=== PATIENT | male | born 1960 | race Caucasian/White ===

== ENCOUNTER → 2018-02-07 12:55 | Outpatient (CLI) | payer OTHER ==
--- NOTE | ~2018-02-07 | EC ---
PATIENT:NIYAH JAEGER DATE OF SERVICE: 02/07/18 SEX: M MEDICAL RECORD: [id number] DATE OF : 60 [facility] AGE OF PATIENT: 57 ADMISSION DATE: 02/07/18 REFERRING PHYSICIAN: INTERPRETING PHYSICIAN: MICHELLE IRIZARRY MD ECHOCARDIOGRAM REPORT ECHO CHARGES 4 ECHO COMPLETE Date: 02/07 CLINICAL DIAGNOSIS: CHEST PAIN ECHOCARDIOGRAPHIC MEASUREMENTS (adult normal given) AC root (d.<3.7cm) 3.8 cm LV Septum d (<1.2 cm> 1.4 cm Valve Excursion 1.8 cm LV Septum (systole) 1.5 cm Left Atria (s.<4.0cm> 3.7 cm LVPW d(<1.2cm) 1.5 cm RV (d.<2.3cm) 4.1 cm LVPW (sytole) 1.8 cm LV diastole(<5.6CM) 5.2 cm MV E-F(>70mm/sec) cm LV systole 2.8 cm LVOT Diameter 2.1 cm MV exc.(>10mm) cm Est.ejection fraction (50-75%) % DOPPLER: LVIT cm/sec A 63.0 cm/sec E 76.0 cm/sec LA cm/sec RVSP 21 mmHg LVOT 115 cm/sec AOP1/2T m/s Asc. Ao 148 cm/sec RVOT 107 cm/sec RA cm/sec PA 160 cm/sec AV Gradient Peak 8.79 mmHg AV Mean 5.04 mmHg AV Area 2.8 cm MV Gradient Peak 2.75 mmHg MV Mean 0.80 mmHg MV Area cm COMMENTS: Promotions Specialist: 2 CHANA CAUSEY Commodities Clerk: 4 Dr. Irizarry TAPE# PACS Pericardial Effusion N DATE OF SERVICE: PROCEDURE: Transthoracic echocardiogram. FINDINGS: 1. The left ventricle is normal size, normal function, ejection fraction 65%. 2. The left atrium is normal. 3. The right atrium is moderately to severely dilated with normal function. 4. The aortic valve is normal. 5. The mitral valve has trace to mild mitral regurgitation, otherwise normal. ECHOCARDIOGRAM REPORT [id number] NIYAH JAEGER 6. The tricuspid valve has normal structure and function. 7. The right atrium is mildly dilated. 8. The pulmonic valve has mild pulmonic insufficiency. 9. The inflow characteristics are normal. CONCLUSIONS: This patient has a normal LV systolic function. No regional wall motion abnormalities with evidence of mild left ventricular hypertrophy. TRANSINT:[id number] Voice Confirmation ID: [id number] DOCUMENT ID: [id number] MICHELLE IRIZARRY MD at 0819 CC: [id number] DICTATION DATE: 02/12/18 1110 NUCLEAR PHYSICS PROFESSOR: 02/12/18 1212 DEP CLI 02/07/18 [id number] [place] [address]
[~2018-02-07 12:55] MED LIST: BAYER CHEWABLE81 MG PO; NORCO 7.5/325 T1 TA1 PO; OMEGA 3 FISH OI1 CAP PO; PRAVACHOL40 MG PO; PROTONIX40 MG PO; VITAMIN D3400 UNI1; VITAMIN E100 UNIT
[2018-03-01 10:40] VITALS: BMI 22.4
== END | disposition home or self-care (01) ==
LOC: D.US 12:55
DX: E78.5 Hyperlipidemia, unspecified (principal); R07.9 Chest pain, unspecified

== ENCOUNTER 2018-02-20 05:59 | Outpatient (CLI) | payer OTHER ==
[~2018-02-20] VITALS: Ht 185.4 cm; Wt 77.3 kg
--- NOTE | ~2018-02-20 | HEMODYNAMI ---
PATIENT:NIYAH JAEGER MEDICAL RECORD: [id number] : 60 LOCATION:[facility] ADMISSION DATE: 02/20/18 Generatedon:02/20/20188:11 Patient name: NIYAH JAEGER Patient #: [id number] SSN: : 1960 Date of study: 02/20/2018 Page: Of Hemodynamic Procedure Report Patient Data Patient Demographics Procedure consent was obtained First Name: NIYAH Gender: Male Last Name: MIL : 1960 Middle Initial: M Age: 57 year(s) Patient #: [id number] Race: Unknown Additional ID: [id number] Contact details Address: [address] [place] [address] State: [place] City: [place] Zip code: [facility] Past Medical History Allergies: No known allergies Admission Admission Data Admission Date: 02/20/2018 Admission Time: 5:59 Admit Source: Other Lab Results Lab Result Date: 02/20/2018 Lab Result Time: 6:33 Biochemistry Name Units Result Min Max BUN mg/dl 18 --(---*)-- 7 18 Creatinine mg/dl 1 --(--*-)-- 0.6 1.3 CBC Name Units Result Min Max Hematocrit % 47.5 --(-*--)-- 42 54 Hemoglobin g/dl 16.3 --(--*-)-- 13.5 17.5 Procedure Procedure Types Cath Procedure Diagnostic Procedure LHC LHC w/Coronaries Procedure Description Procedure Date Procedure Date: 02/20/2018 Procedure Start Time: 7:58 Procedure End Time: 8:10 Procedure Staff Name Function Adrian Nick MD Performing Physician Pb Barron RT Monitor Reny Workman RT Scrub Jacques De Souza RN Nurse Procedure Data Cath Procedure Fluoroscopy Diagnostic fluoroscopy Total fluoroscopy Time: 3.7 time: 3.7 min min Diagnostic fluoroscopy Total fluoroscopy dose: 233 dose: 233 mGy mGy Contrast Material Contrast Material Type Amount (ml) Isovue 370 30 Entry Location Entry Primary Successful Side Size Upsize Upsize Entry Closure Koehler ccessful Closure Location (Fr) 1 (Fr) 2 (Fr) Remarks Device Remarks Radial Right 6 Fr Mechanical artery Short Compression Estimated blood loss: 5 ml Diagnostic catheters Device Type Used For End Catheter Placement DIAGNOSTIC New Freedom 110cm 5 Procedure Fr catheter ([id number]) Procedure Complications No complications Procedure Medications Medication Administration Route Dosage Oxygen NC 2 l/min Lidocaine 2% added to field 20 Heparin Flush Bag added to field 2 bags (1000units/500ml NS) 0.9% NaCl I.V. 100 ml/hr Radial Cocktail I.A. 1 syringe (Verapomil 2mg/Nitro 400mcg/Heparin 1500units) Versed I.V. 2 mg Fentanyl I.V. 25 mcg 0.9% NaCl I.V. bolus 500 ml Hemodynamics Rest HGB: 16.3 (g/dl) Heart Rate: 51 (bpm) Pressure Samples Time Site Value (mmHg) Purpose Heart Use Rate(bpm) 8:01 LV 116/0,18 EDP 64 Gradients Valve Time Site Site Mean SEP/DFP Peak To Heart Use 1 2 (mmHg) (sec/min) Peak Rate (mmHg) (bpm) Aortic 8:01 LV AO 94 Snapshots Pre Cath Intra NCS Post Cath Vital Signs Time Heart Resp SPO2 etCO2 NIBP Rhythm Pain Sedation Rate (ipm) (%) (mmHg) (mmHg) Status Level (bpm) 7:44:37 51 16 97 0 109/70(92) NSR 0 (11) 10(A) , No pain 7:49:14 49 15 97 30.6 110/66(87) NSR 0 (11) 10(A) , No pain 7:53:50 51 13 97 33.6 111/70(89) NSR 0 (11) 10(A) , No pain 7:58:27 54 14 93 38.9 94/61(75) NSR 0 (11) 9(A) , No pain 8:03:01 58 16 95 35.2 92/49(66) NSR 0 (11) 9(A) , No pain 8:07:33 51 15 95 35.9 97/58(74) NSR 0 (11) 10(A) , No pain Medications Time Medication Route Dose Verified Delivered Reason Notes E ffectiveness by by 7:50:27 Oxygen NC 2 l/min Adrian Buffie used for Sandoval De Souza RN procedure 7:50:34 Lidocaine 2% added 20ml Adrian Adrian for local to vial Sandoval Nick MD anesthetic field 7:50:41 Heparin Flush added 2 bags Adrian Adrian used for Bag to Sandoval Nick MD procedure (1000units/500ml field GUEVARA NS) 7:51:01 Radial Cocktail I.A. 1 Adrian Adrian for (Verapomil syringe Sandoval Nick MD vasodilation 2mg/Nitro MD 400mcg/Heparin 1500units) 7:54:50 Versed I.V. 2 mg Adrian Buffie for sedation Sandoval De Souza RN, MD 7:54:59 Fentanyl I.V. 25 mcg Adrian Buffie for sedation Sandoval De Souza RN, MD 7:59:55 0.9% NaCl I.V. 100 Adrian Buffie Per ml/hr Sandoval De Souza RN physician 8:03:29 0.9% NaCl I.V. 500 ml Adrian Buffie Per bolus Sandoval shaffer MD Procedure Log Time Note 7:26:25 Informed consent obtained and on chart 7:26:28 Admit Source: Other 7:27:13 Diagnostic Cath status Elective 7:27:15 Time tracking: Regular hours (M-F 7:00 - 5:00) 7:27:18 Plan of Care:Hemodynamics will remain stable., Cardiac rhythm will remain stable., Comfort level will be maintained., Respiratory function will remain adequate., Patient/ family verbilizes understanding of procedure., Procedure tolerated without complication., Recovers from procedure without complications.. 7:29:01 H&P Date Dictated: 02/11/2018 Within 30 days and on chart., H&P Addendum completed by physician on day of procedure. (MUST COMPLETE FOR ALL OUTPATIENTS). 7:29:03 Is patient on blood thinner?Yes 7:29:05 ACC The patient was administered the following blood thiners within the last 24 hours: ACCPlavix 7::51 Lab Result : BUN 18 mg/dl 7::51 Lab Result : Hematocrit 47.5 % 7::51 Lab Result : Hemoglobin 16.3 g/dl 7::51 Lab Result : Creatinine 1 mg/dl 7:33:23 Reny Counts RT(R) sent for patient. Start room use. 7:42:19 Patient received from Pre/Post Procedure Room to CCL 1 Alert and oriented. Tansferred to table in Supine position. 7:42:20 Warm blankets applied, and albino hugger turned on for patient comfort. 7:42:23 Correct patient and procedure confirmed by team. 7:42:25 ECG and BP/O2 sat monitors applied to patient. 7:43:46 Vital chart was started 7:43:47 Full Disclosure recording started 7:50:27 Oxygen 2 l/min NC was administered by Jacques De Souza RN; used for procedure; 7:50:34 Lidocaine 2% 20ml vial added to field was administered by Adrian Nick MD; for local anesthetic; 7:50:41 Heparin Flush Bag (1000units/500ml NS) 2 bags added to field was administered by Adrian Nick MD; used for procedure; 7:51:01 Radial Cocktail (Verapomil 2mg/Nitro 400mcg/Heparin 1500units) 1 syringe I.A. was administered by Adrian Nick MD; for vasodilation; 7:52:26 Baseline sample Acquired. 7:52:29 Rhythm: sinus rhythm 7:52:32 Pre-procedure instructions explained to patient. 7:52:33 Pre-op teaching completed and patient verbalized understanding. 7:52:35 Family in waiting room. 7:52:36 Patient NPO since Midnight. 7:52:40 Patient allergic to No known allergies 7:52:42 Is the patient allergic to Iodine/contrast media? No. 7:52:45 Patient diabetic? No. 7:52:48 Previous problem with sedation/anesthesia? No ? 7:52:50 Snore? Yes 7:52:51 Sleep apnea? No 7:52:52 Deviated septum? No 7:52:53 Opens mouth fully? Yes 7:52:53 Sticks out tongue? Yes 7:52:55 Airway obstruction? No ? 7:52:57 Dentures? No ? 7:52:59 Modified Jadon's test Ulnar < 7 seconds 7:53:01 Patient pain scale 0/10 ?. 7:53:05 IV patent on arrival in left forearm with 0.9% NaCl at O. 7:53:08 Lab results completed and on chart. 7:53:10 Right Radial & Right Groin area was prepped with chlora-prep and draped in sterile fashion 7:53:11 Alarms reviewed by R. N. 7:53:11 Sharps counted by scrub and verified by R.N. 7:53:13 Use device set Radial Dx or PCI 7:53:14 ACIST Syringe (46353) opened to sterile field. 7:53:15 Medline Cath Pack ([id number]) opened to sterile field. 7:53:17 ACIST Hand Control (33498) opened to sterile field. 7:53:17 ACIST Manifold (31343) opened to sterile field. 7:53:18 Tegaderm 4 x 4 (1626W) opened to sterile field. 7:53:18 MBrace Wrist Support ([id number]) opened to sterile field. 7:53:20 Bag Decanter (2002S) opened to sterile field. 7:53:21 DIAGNOSTIC WIRE .035 260cm J wire (561663) opened to sterile field. 7:53:22 NEEDLE Cook 21G 4cm Radial ([id number]) opened to sterile field. 7:53:23 SHEATH 6Fr Prelude Radial ([id number]) opened to sterile field. 7:53:30 Physician arrived 7:53:30 --------ALL STOP TIME OUT------ 7:53:31 Final Timeout: patient, procedure, and site verified with staff and physician. All members of the team are in agreement. 7:53:32 Right Radial & Right Groin site verified by team. 7:53:35 Physical assessment completed. ASA score P 2 - A patient with mild systemic disease as per Adrian Nick MD. 7:53:38 Sedation plan: IV Moderate Sedation Medication:Versed, Fentanyl 7:54:50 Versed 2 mg I.V. was administered by Jacques De Souza RN; for sedation; 7:54:59 Fentanyl 25 mcg I.V. was administered by Jacques De Souza RN; for sedation; 7:57:45 Zero performed for pressure channel P1 7:57:59 Procedure started. 7:58:03 Local anesthetic to right radial artery with Lidocaine 2% by Adrian Nick MD.INITIAL ACCESS ONLY 7:59:38 A 6 Fr Short sheath was inserted into the Right Radial artery 7:59:51 A DIAGNOSTIC New Freedom 110cm 5 Fr catheter ([id number]) was advanced over the wire and used for Procedure. 7:59:55 0.9% NaCl 100 ml/hr I.V. was administered by Jacques De Souza RN; Per physician; 8:01:08 LV gram done using ALCANTAR 8:01:11 Injector settings: Ml/sec: 12, Volume: 8, 8:01:13 LV hemodynamics recorded. 8:01:54 EF : 65 % 8:02:06 RCA angiography performed. 8:03:29 0.9% NaCl 500 ml I.V. bolus was administered by Jacques De Souza RN; Per physician; 8:05:11 Catheter removed. 8:05:46 TR BAND Standard ([id number]) opened to sterile field. 8:05:56 Sheath removed intact; hemostasis achieved with Mechanical Compression to the Right Radial artery. 8:05:58 Procedure ended.(Physican Out) 8:07:30 Fluoroscopy time 03.70 minutes. 8:07:37 Fluoroscopy dose: 233 mGy 8:07:37 Flurop Dose total: 233 8:07:43 Contrast amount:Isovue 370 30ml. 8:08:01 Sharps counted by scrub and verified by R.N. 8:08:06 TR band inflated with 10cc of air. 8:08:42 Insertion/operative site no bleeding no hematoma. 8:08:47 Post right radial artery:stable, soft, clean and dry 8:08:49 Post Procedure Pulses reassessed and unchanged 8:08:52 Post-procedure physical assessment completed. ASA score P 3 - A patient with severe systemic disease as per Adrian Nick MD. 8:08:54 Post procedure rhythm: unchanged. 8:08:56 Estimated blood loss: 5 ml 8:09:01 Post procedure instruction explained to patient.Patient verbalizes understanding. 8:09:02 Patient needs reinforcement of post procedure teaching. 8:09:49 Procedure and supply charges have been captured, reviewed, submitted and are correct. 8:09:51 Procedure Complication : No complications 8:09:52 Vital chart was stopped 8:09:53 See physician's report for complete and final results. 8:09:54 Report given to Pre/Post Procedure Room. 8:09:57 Patient transfered to Pre/Post Procedure Room with Stretcher. 8:10:00 Procedure ended. 8:10:00 Full Disclosure recording stopped 8:10:03 End room use (Document Last) Device Usage Item Name Manufacture Quantity Catalog Number Hospital Part Current M inimal Lot# / Charge Number Stock Stock Serial# Code ACIST Syringe Acist 1 55992 465130 762799 596857 2 0 (78134) [employer] Medline Cath Cardinal 1 [id number] 582979 98931 023919 5 Pack Health ([id number]) ACIST Hand Acist 1 45460 047361 760480 601879 5 Control (05374) [employer] Inc ACIST Manifold Acist 1 53988 980503 506904 070939 5 (75250) [employer] Inc Tegaderm 4 x 4 3M 1 1626W 907995 961286 611744 5 (1626W) MBrace Wrist Advanced 1 140-0250-00 854362 32087 939390 5 Support Vascular ([id number]) Dynamics Bag Decanter Microtek 1 2002S 781227 37576 616851 5 (2001S) Medical Inc. DIAGNOSTIC WIRE St Blade 1 408549 541742 162499 440205 3 0 .035 260cm J wire (972195) NEEDLE Cook 21G Cook Medical 1 Q87882 166823 683837 126674 5 4cm Radial (S57864) SHEATH 6Fr Merit 1 [id number] 317638 420583 722168 5 Prelude Radial Medical ([id number]) DIAGNOSTIC Terumo 1 40-6607 180121 344799 075132 5 New Freedom 110cm 5 Fr catheter (641490) TR BAND Terumo 1 [id number] 837629 953516 231608 4 0 Standard ([id number]) Signature Audit [place] Stage Time Signature Unsigned Intra-Procedure 02/20/2018 Pb Barron 8:11:04 AM RT(R) Signatures Monitor : Pb Barron RT Signature : Date : Time : [facility] [address] [place] [address]
[2018-02-20] MEDS ORDERED: PRAVACHOL40 MG PO (06:14)
[2018-02-20] MEDS ORDERED: PROTONIX40 MG PO (06:14)
[2018-02-20] MEDS ORDERED: BAYER CHEWABLE81 MG PO (06:15)
[2018-02-20] MEDS ORDERED: VITAMIN D3400 UNI1 (06:15)
[2018-02-20] MEDS ORDERED: OMEGA 3 FISH OI1 CAP PO (06:16)
[2018-02-20] MEDS ORDERED: VITAMIN E100 UNIT (06:16)
[2018-02-20 06:30] VITALS: BP 112/71; Ht 185.4 cm; Wt 77.3 kg
[2018-02-20 06:34] LABS: BASOPHILS 0.6 % (0-2); EOSINOPHILS 5.6 % (0-7); HEMATOCRIT 47.5 % (42.0-54.0); HEMOGLOBIN 16.3 g/dL (13.5-17.5); IMMATURE GRANULOCYTES 0.4 % (0-5); LYMPHOCYTES 23.3 % (15-50); MCHC 34.3 g/dL (31.0-37.0); MCV 87.3 fL (80.0-100.0); MEAN PLATELET VOLUME 8.5 fL (7.4-10.4); MONOCYTES 14.1 % (2-11); PLATELET COUNT 203 10x3/uL (130-400); RBC 5.44 10x6/uL (4.20-6.10); RDW 13.4 % (11.5-14.5); WBC 6.9 10x3/uL (4.8-10.8)
[2018-02-20 06:41] LABS: CALC OSMOLALITY 282 mosm/kg (275-300); CALCIUM 8.9 mg/dL (8.5-10.1); CARBON DIOXIDE 26.7 mmol/L (21.0-32.0); CHLORIDE - SERUM 105 mmol/L (98-107); GLUCOSE 96 mg/dL (74-106); POTASSIUM - SERUM 3.9 mmol/L (3.5-5.1); SODIUM 141 mmol/L (136-145); UREA NITROGEN 18 mg/dL (7-18); eGFR NON AFRICAN AMERICAN 82 mL/min (90-120)
== END 2018-02-20 11:05 | disposition home or self-care (01) ==
LOC: D.CATH 05:59
PROVIDERS: Internal Medicine Cardiovascular Disease
DX: R07.9 Chest pain, unspecified (principal); R94.31 Abnormal electrocardiogram [ECG] [EKG]; Z01.812 Encounter for preprocedural laboratory examination

== ENCOUNTER 2018-02-23 13:23 | Emergency (ER) | payer OTHER ==
[2018-02-20 06:30] VITALS: BMI 22.4
[~2018-02-23 13:23] MED LIST changes: -NORCO 7.5/325 T1 TA1 PO
== END 2018-02-23 14:36 | disposition home or self-care (01) ==
LOC: D.ER 13:23
DX: S42.001A Fracture of unspecified part of right clavicle, initial encounter for closed fracture (principal); W19.XXXA Unspecified fall, initial encounter; Y93.89 Activity, other specified; Y92.019 Unspecified place in single-family (private) house as the place of occurrence of the external cause; I10 Essential (primary) hypertension

== ENCOUNTER 2018-03-01 09:48 | Day surgery (SDC) | payer OTHER ==
[~2018-03-01] VITALS: Ht 185.4 cm; Wt 77.1 kg
--- NOTE | ~2018-03-01 | OP ---
PATIENT NAME: NIYAH JAEGER MEDICAL RECORD: [id number] :60 LOCATION:[facility] ADMISSION DATE: SURGEON: WILMAR ENRIQUEZ MD DATE OF OPERATION: 03/01/2018 ANESTHESIA: Jarrod Tomas MD SURGEON: Wilmar Enriquez MD CEO NA: None. PREOPERATIVE DIAGNOSIS: Right closed comminuted and displaced clavicle fracture. POSTOPERATIVE DIAGNOSIS: Right closed comminuted and displaced clavicle fracture. PROCEDURE PERFORMED: Open reduction internal fixation of right displaced and comminuted clavicle fracture. ANTIBIOTICS: Vancomycin 1 gm. ESTIMATED BLOOD LOSS: 50 cc. FINDINGS: See body of report. COMPLICATIONS: None. PATHOLOGY: None. IMPLANTS: The implants utilized for the procedure was the VariAx superior mid shaft plating system, an 8-hole superior midshaft plate was selected. A combination of one interfragmentary 2.7 bone screw as well as a combination of four 3.5 cortical compression screws and four 3.5 locking screws were utilized in order to fix the fracture. Also used were 2 sternal wires. DRAINS: None. TOURNIQUET: None. DISPOSITION: Postoperative stable to the recovery room. Needle, sponge, and instrument counts were correct. INDICATIONS FOR THE PROCEDURE: The patient sustained a clavicle fracture, which was comminuted and moderately displaced. This was a fracture of the right clavicle. On follow up at clinic, it was noted that it displaced further with shortening and kick-stand fragmentation within the mid shaft. A recommendation for surgery was made. After discussing risks, benefits, alternatives and complications of surgery versus no surgery the patient's questions were answered and informed consent was obtained for the recommended surgery. PROCEDURE IN DETAILS: The patient was taken back to the operating room after a block was placed by anesthesia in the preop area. He was placed supine on the operative table where general anesthesia was provided by the anesthesia department and then was brought up into the beach chair position. Fluoroscopic OPERATIVE REPORT [id number] NIYAH JAEGER imaging was done at the beginning of the procedure in order to determine that adequate imaging would be possible during the procedure. Then, the right upper extremity was elevated, prepped and draped to include the neck, right shoulder and upper thorax in order to approach the clavicle safely for a superior plating approach. Ioban was placed over the skin after the bony landmarks and the planned incision were marked on skin. An incision was then made through skin. This was carefully taken down through the platysma and the medial and lateral clavicular nerves were identified and protected. No intermediate branch was identified. The fracture site and fracture hematoma were encountered and evacuated. The incision was carried proximally and distally over the shaft of the clavicle with care to only strip that which was necessary to reduce the fracture fragments. This required elevation of the trapezius and deltoid in order to expose portions of the fracture site. At this time, the fracture hematoma was removed with a combination of Clements tip suction and pituitary. Copious irrigation was then carried out. The fracture was identified. First the distal fragment was reduced to a comminuted segment adjacent to it. This was pinned with K wires and fixed with one 2.7 compression screw. One of the two K-wires were left in place as a derotational pin. Following this, the inferior fragment adjacent to the proximal segment was rotated and carefully using a sternal wire this was fixed to the bone. At this time, a second sternal wire was applied to secure the lateral fragment, which had been fixed with a compression screw, to the medial fragment. A reduction maneuver was then performed bringing the proximal and distal fragments together and these were held in place with a clamp. The 8-hole plate was then selected and placed superior and moved into position using fluoroscopic imaging. First cortical screws, compression screws, were used proximally and distally in the 2 holes most proximal and distal on either side of the plate in order to bring the plate down to bone. Following this, 4 locking screws were drilled and placed across the comminuted segment completing the fixation. Fluoroscopic imaging was performed revealing adequate placement of hardware, adequate reduction, and stable internal fixation. All clamps were removed prior to this imaging. Copious irrigation was then carried out. 0 Vicryl was utilized to close the deltoid and pectoralis back down to their appropriate positions. Care was taken not to injure the medial and lateral clavicular nerves. Following this, 2-0 Vicryl was used in the subcutaneous tissues and dermis in order to close the wound and subcutaneous Monocryl suture was applied to close the skin followed by cleansing of the skin and application of Dermabond. A sterile dressing was applied with Adaptic, 4 x 4s, ABD and tape. The patient was then awakened and extubated in stable condition and brought to recovery room with a sling placed on the right upper extremity. TRANSINT:[id number] Voice Confirmation ID: [id number] DOCUMENT ID: [id number] WILMAR ENRIQUEZ MD at 1015 CC: [id number] DICTATION DATE: 03/25/18 1528 FUNCTIONAL TESTER TYPEWRITERS: JMIRIAN 03/25/18 1522 [facility] 03/01/18 [place] [id number]
[2018-03-01] MEDS ORDERED: NORCO 7.5/325 T1 TA1 PO (10:18)
[2018-03-01 10:40] VITALS: BP 108/73; Ht 185.4 cm; Wt 77.1 kg
== END 2018-03-01 21:20 | disposition home or self-care (01) ==
LOC: D.OPS 09:48 → D.PAN 12:15 → D.MS 20:00 → D.OPS 21:20
DX: S42.021A Displaced fracture of shaft of right clavicle, initial encounter for closed fracture (principal); Z01.812 Encounter for preprocedural laboratory examination

== ENCOUNTER 2018-05-04 15:24 | Emergency (ER) | payer OTHER ==
[~2018-05-04] VITALS: Ht 185.4 cm; Wt 77.3 kg
[~2018-05-04 15:24] MED LIST changes: +NORCO 7.5/325 T1 TA1 PO
[2018-05-04 15:36] VITALS: Ht 185.4 cm; Wt 77.3 kg
[2018-05-04] MEDS ORDERED: CIPRO500 MG PO (18:35)
[2018-05-04 19:25] VITALS: BP 128/71
== END 2018-05-04 19:15 | disposition home or self-care (01) ==
LOC: D.ER 15:24
DX: S91.115A Laceration without foreign body of left lesser toe(s) without damage to nail, initial encounter (principal); W26.9XXA Contact with unspecified sharp object(s), initial encounter; Y93.89 Activity, other specified; Y92.019 Unspecified place in single-family (private) house as the place of occurrence of the external cause; S92.592A Other fracture of left lesser toe(s), initial encounter for closed fracture